=== PATIENT | female | born 1990 | race African-American/Black ===

== ENCOUNTER 2017-01-08 03:23 | Emergency (ER) | payer MEDICAID ==
[~2017-01-08] VITALS: Ht 165.1 cm; Wt 85.0 kg
[~2017-01-08 03:23] MED LIST: AMOX500T PO; AUGM875T PO; IBUP800 PO
[2017-01-08 03:28] VITALS: BP 123/74; PULSE 98; RESP 18; TEMP 98.5; O2SAT 100
--- NOTE | 2017-01-08 04:16 | PD ---
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 Patient states that the symptoms started a week ago. Patient states that pain in cramping pain localized to low back area and lower abdomen pelvic area. Patient denies any pain radiation. Patient states that her last menstruation period was November 07. Patient is a home test recently and was positive. Patient denies any vaginal discharge or bleeding. Patient denies any dysuria or frequency. Patient denies any fever chills. PFSH Past Medical History Cancer: No Cardiovascular Problems: No Diabetes: No Diminished Hearing: No Endocrine: No Gastrointestinal Disorders: No Genitourinary: No Heparin Induced Thrombocytopen: No Immune Disorder: No Implanted Vascular Access Dvce: No Musculoskeletal: No Neurologic: No Psychiatric: No Reproductive: No Respiratory: No Immunizations Current: Yes Sickle Cell Disease: No Thyroid Disease: No Tetanus Vaccination: Unknown Influenza Vaccination: No ?: : 4 Para: 3 Miscarriage: 0 : 0 Past Surgical History Section: Yes (X3) Other Surgery: No Social History Alcohol Use: No Tobacco Use: No Substance Use: No Allergies-Medications (Allergen,Severity, Reaction): Coded Allergies: No Known Allergies (Verified , 01/08/17) Reported Meds & Prescriptions Reported Meds & Active Scripts Active Review of Systems General / Constitutional: No: Fever Eyes: No: Visual changes HENT: No: Headaches Cardiovascular: No: Chest Pain or Discomfort Respiratory: No: Shortness of Breath Gastrointestinal: Positive: Abdominal Pain Genitourinary: Positive: Pelvic Pain, No: Dysuria Musculoskeletal: No: Pain Skin: No Rash Neurologic: No: Weakness Psychiatric: No: Depression Endocrine: No: Polydipsia Hematologic/Lymphatic: No: Easy Bruising Physical Exam Narrative GENERAL: Well-nourished, well-developed patient. SKIN: Focused skin assessment warm/dry. HEAD: Normocephalic. EYES: No scleral icterus. No injection or drainage. NECK: Supple, trachea midline. No JVD or lymphadenopathy. CARDIOVASCULAR: Regular rate and rhythm without murmurs, gallops, or rubs. RESPIRATORY: Breath sounds equal bilaterally. No accessory muscle use. GASTROINTESTINAL: Abdomen soft, nondistended. Patient has mild tenderness on palpation lower abdomen area. No rebound tenderness. No mass. MUSCULOSKELETAL: No cyanosis, or edema. BACK: Nontender without obvious deformity. No CVA tenderness. CAD LIBRARIAN exam: Cervix is long thick and closed. No blood in the vaginal vault. Data Data Last Documented VS Vital Signs Date Time Temp Pulse Resp B/P (MAP) Pulse Ox O2 Delivery O2 Flow Rate FiO2 01/08/17 03:28 98.5 98 18 123/74 (90) 100 Orders Orders Beta Hcg (Quant/Titer) (01/08/17 04:10) Complete Rh (01/08/17 04:10) Urinalysis - C+S If Indicated (01/08/17 04:10) Ed Urine Pregnancytest Poc (01/08/17 04:10) Us Pelvis (Ques Pr/Ect)W Trans (01/08/17 04:48) Labs Laboratory Tests Test 01/08/17 04:10 01/08/17 04:15 Urine Color YELLOW Urine Turbidity CLEAR Urine pH 6.5 Urine Specific [place] 1.019 Urine Protein NEG mg/dL Urine Glucose (UA) NEG mg/dL Urine Ketones NEG mg/dL Urine Occult Blood NEG Urine Nitrite NEG Urine Bilirubin NEG Urine Urobilinogen 2.0 MG/DL Urine Leukocyte Esterase NEG Urine RBC LESS THAN 1 /hpf Urine WBC 2 /hpf Urine Squamous Epithelial Cells <1 /hpf Urine Mucus FEW /lpf Microscopic Urinalysis Comment CULT NOT INDICATED Human Chorionic Gonadotropin, Quant 09146 MIU/ML MDM Medical Decision Making Medical Screen Exam Complete: Yes Emergency Medical Condition: Yes Interpretation(s) 6:05 AM. UA is negative. Beta hCG 70595. 6:34 AM. pelvic ultrasound shows intrauterine 8 weeks 1 day. Small amount of subchorionic hemorrhage. Differential Diagnosis Differential diagnosis including , ovarian cyst, ectopic , threatened AB. Narrative Course 26-year-old female with low abdominal pelvic pain. Urine test Positive. Diagnosis Primary Impression: Pelvic pain during Patient Instructions: General Instructions Additional Instructions: Tylenol for pain. vitamins as directed. Follow-up with OB physician. Return if increased abdominal pelvic pain, vaginal bleeding. Med/Other Pt SpecificInfo: No Meds Exist/No RX given Disposition: DISCHARGE HOME Condition: Stable Adolph Rivas MD Jan 08, 2017 04:16
[2017-01-08 04:47] LABS: BLOOD, URINE NEG (NEG); COMMENT (UR) CULT NOT INDICATED; CULTURE IF INDICATED CULT NOT INDICATED; GLUCOSE,URINE NEG (NEG); KETONE, URINE NEG (NEG); MUCUS URINE FEW /lpf (OCC); NITRITE,URINE NEG (NEG); PH, URINE 6.5 (5.0-8.5); SQUAMOUS EPITHELIAL CELL URINE <1 /hpf (0-5); URINE COLOR YELLOW (YELLW/STRAW)
[2017-01-08 05:32] LABS: BETA HCG QUANT 50487 MIU/ML (0-5)
--- NOTE | 2017-01-08 06:30 | RADRPT ---
EXAM DATE/TIME: 01/08/2017 05:28 [facility] COMPARISON: No previous studies available for comparison. INDICATIONS : Pelvic pain. LAB(S): Beta-hC MEDICAL HISTORY : . SURGICAL HISTORY : Left foot surgery. ENCOUNTER: Initial ACUITY: 1 week PAIN SCORE: 6/10 LOCATION: Bilateral pelvis MEASUREMENTS: UTERUS: 8.6 x 8.0 x 5.7 cm ENDOMETRIAL STRIPE: 8 mm RIGHT OVARY: 3.8 x 2.6 x 2.1 cm LEFT OVARY: 3.4 x 2.0 x 1.9 cm FREE FLUID: No CROWN RUMP LENGTH: 1.7 cm = 8 WKS 1 DAYS FHR: 169 BPM FINDINGS: UTERUS: There is a single intrauterine gestational sac with a pole. [place]hta-rump length corresponds to 8 weeks one day. cardiac activity is detected. Small hypoechoic regions noted along the inferior and superior margins of the gestational sac. RIGHT OVARY: Ovary contains no mass or significant cystic lesion. LEFT OVARY: Ovary contains no mass or significant cystic lesion. MISCELLANEOUS: No free fluid. CONCLUSION: 1. Single intrauterine gestational sac corresponding to 8 weeks 1 day with heart rate of 169 bp m. 2. Small hypoechoic regions noted along the inferior and superior margins of the gestational sac may reflect evolving focal subchorionic hemorrhage. 3. Normal appearing ovaries without significant pelvic free fluid. Wolf Cutler MD on January 08, 2017 at 6:23 Board Certified Radiologist. This report was verified electronically.
== END 2017-01-08 06:43 | disposition home or self-care (01) ==
LOC: NEPC 03:23
DX: O26.891 Other specified pregnancy related conditions, first trimester (principal); R10.2 Pelvic and perineal pain; Z3A.01 Less than 8 weeks gestation of pregnancy
CPT/HCPCS: 76700; 76817; 81001; 84702; 84703; 86901; 99284

== ENCOUNTER 2017-09-08 07:42 | Inpatient (IN) | payer MEDICAID ==
[2017-09-08] VITALS (56 sets, daily range): BP systolic 116–163; BP diastolic 58–108; PULSE 92–110; RESP 16–18; TEMP 98.4–98.6; O2SAT 95–100
[~2017-09-08] VITALS: Ht 157.5 cm; Wt 104.0 kg
[2017-09-08] MEDS ORDERED: LORazepam 2 MG/ML VIAL ONE (08:15)
[2017-09-08 08:20] LABS: BASOPHIL % 0.4 % (0.0-2.0); EOSINOPHIL # 0.1 TH/MM3 (0-0.4); EOSINOPHIL % 1.8 % (0.0-4.0); HEMATOCRIT 34.2 % (35.0-46.0); HEMOGLOBIN 10.5 GM/DL (11.6-15.3); LYMPH % 26.5 % (9.0-44.0); LYMPHOCYTE # 2.1 TH/MM3 (1.0-4.8); MEAN CELL VOLUME 67.8 FL (80.0-100.0); MEAN CORPUSCULAR HEMOGLOBIN 20.9 PG (27.0-34.0); MEAN CORPUSCULAR HGB CONC 30.8 % (32.0-36.0); MEAN PLATELET VOLUME 8.2 FL (7.0-11.0); MONO % 8.7 % (0.0-8.0); MONOCYTE # 0.7 TH/MM3 (0-0.9); NEUT % 62.6 % (16.0-70.0); PLATELET COUNT 350 TH/MM3 (150-450); RED BLOOD COUNT 5.04 MIL/MM3 (4.00-5.30); RED CELL DISTRIBUTION WIDTH 19.7 % (11.6-17.2); WHITE BLOOD COUNT 8.1 TH/MM3 (4.0-11.0)
[2017-09-08] MEDS ORDERED: MAGNESIUM SULFATE 4 GM PREMIX 100 ML IV ONE ×2 (08:30→10:30)
[2017-09-08] MEDS ORDERED: MAGNESIUM SULFATE 4 GM PREMIX 150 ML IV ONE (08:30)
[2017-09-08] MEDS ORDERED: LORazepam 2 MG/ML VIAL IV PUSH ONE (08:30)
[2017-09-08] MEDS ORDERED: MAGNESIUM SULFATE 2 GM/NS 100 ML IV SCH ×4 (08:30→10:15)
--- NOTE | 2017-09-08 08:33 | PD ---
HPI Chief Complaint: Seizure Time Seen by Provider: 07:53 Travel History International Travel<30 days: No Contact w/Intl Traveler<30days: No Traveled to known affect area: No History of Present Illness HPI This is a 27-year-old female who is 4 weeks who presents to the emergency department having woken up nauseous not feeling well and then had 2 episodes where she "fell out". She does not remember the details of the episodes. She did hit her head. Her family members at the bedside and witnessed 1 of the episodes and said she was shaking all over and trying to speak but could not. She did not have any urinary incontinence. Patient did not bite her tongue. History is limited because the patient is somewhat sleepy. Patient reports she had a vaginal delivery and was induced at 39 weeks. She was told that she was high risk for high blood pressure. She has never taken anything for blood pressure in the past and had no high blood pressure outside of . She has never been told that she had preeclampsia. PFSH Past Medical History Cancer: No Cardiovascular Problems: No Diabetes: No Diminished Hearing: No Endocrine: No Gastrointestinal Disorders: No Genitourinary: No Heparin Induced Thrombocytopen: No Immune Disorder: No Implanted Vascular Access Dvce: No Musculoskeletal: No Neurologic: No Psychiatric: No Reproductive: No Respiratory: No Immunizations Current: Yes Sickle Cell Disease: No Thyroid Disease: No ?: Unknown : 4 Para: 3 Miscarriage: 0 : 0 Past Surgical History Section: Yes (X3) Other Surgery: No Social History Alcohol Use: No Tobacco Use: No Substance Use: No Allergies-Medications (Allergen,Severity, Reaction): Coded Allergies: No Known Allergies (Verified Allergy, Unknown, 09/08/17) Reported Meds & Prescriptions Reported Meds & Active Scripts Active Review of Systems Except as stated in HPI: all other systems reviewed are Neg Physical Exam Narrative GENERAL: Sleepy but awakens to answer questions. SKIN: Focused skin assessment warm and dry. HEAD: Atraumatic. Normocephalic. EYES: Pupils equal and round. No injection or drainage. ENT: Moist mucous membranes NECK: Trachea midline. CARDIOVASCULAR: Regular rate and rhythm. No murmur appreciated. RESPIRATORY: Clear to auscultation. Breath sounds equal bilaterally. GASTROINTESTINAL: Abdomen soft, non-tender, nondistended. MUSCULOSKELETAL: No obvious deformities. NEUROLOGICAL: Awake and alert. No obvious cranial nerve deficits. Moving all extremities. PSYCHIATRIC: Appropriate mood and affect; insight and judgment normal. Data Data Last Documented VS Vital Signs Date Time Temp Pulse Resp B/P (MAP) Pulse Ox O2 Delivery O2 Flow Rate FiO2 09/08/17 08:00 100 Nasal Cannula 2.00 09/08/17 07:46 98.6 94 17 163/108 (126) Orders Orders Complete Blood Count With Diff (09/08/17 07:59) Comprehensive Metabolic Panel (09/08/17 07:59) ^ Insert Iv (09/08/17 07:59) Ct Brain W/O Iv Contrast(Rout) (09/08/17 ) Urinalysis - C+S If Indicated (09/08/17 07:59) Electrocardiogram (09/08/17 ) Lorazepam Inj (Ativan Inj) (09/08/17 08:15) Lorazepam Inj (Ativan Inj) (09/08/17 08:30) Magnesium Sulfate Inj (Magnesium Sulfate (09/08/17 08:30) Labs Laboratory Tests Test 09/08/17 08:05 White Blood Count 8.1 TH/MM3 Red Blood Count 5.04 MIL/MM3 Hemoglobin 10.5 GM/DL Hematocrit 34.2 % Mean Corpuscular Volume 67.8 FL Mean Corpuscular Hemoglobin 20.9 PG Mean Corpuscular Hemoglobin Concent 30.8 % Red Cell Distribution Width 19.7 % Platelet Count 350 TH/MM3 Mean Platelet Volume 8.2 FL Neutrophils (%) (Auto) 62.6 % Lymphocytes (%) (Auto) 26.5 % Monocytes (%) (Auto) 8.7 % Eosinophils (%) (Auto) 1.8 % Basophils (%) (Auto) 0.4 % Neutrophils # (Auto) 5.0 TH/MM3 Lymphocytes # (Auto) 2.1 TH/MM3 Monocytes # (Auto) 0.7 TH/MM3 Eosinophils # (Auto) 0.1 TH/MM3 Basophils # (Auto) 0.0 TH/MM3 CBC Comment DIFF FINAL Differential Comment MDM Medical Decision Making Medical Screen Exam Complete: Yes Emergency Medical Condition: Yes Interpretation(s) Afebrile, mild tachycardia, hypertension Hemoglobin is 10.5 Differential Diagnosis Seizure, eclampsia, syncope, pseudoseizure Narrative Course This is a 27-year-old female who presents to the emergency department with a possible seizure earlier this morning. She did hit her head. She has 4 weeks . Blood pressure here is elevated. Patient had an additional witnessed possible tonic-clonic seizure in the emergency department. I spoke to Dr. East the OB hospitalist. My concern is that this reflects eclampsia. Patient was given 2 mg of IV Ativan and loaded with 6 g of magnesium. She has been accepted to labor and delivery for further management. Critical Care Narrative Aggregate critical care time was 40 minutes. Time to perform other separately billable procedures was not included in the critical care time. My time did not include minutes spent treating any other patients simultaneously or on activities that did not directly contribute to the patient's treatment. The services I provided to this patient were to treat and/or prevent clinically significant deterioration that could result in:disability, I provided critical care services requiring my management, as noted below: Chart data review, documentation time, medication orders and management, vital sign assessments/reviewing monitor data, ordering and reviewing lab tests, ordering and interpreting/reviewing x-rays and diagnostic studies, care of the patient and discussion of the patient with the admitting physicians. Diagnosis Primary Impression: Eclamptic seizure Admitting Information Admitting Physician Requests: Admit Hailee Finley MD September 08, 2017 08:33
[2017-09-08 08:39] LABS: ALBUMIN 3.3 GM/DL (3.4-5.0); AST (GOT) 25 U/L (15-37); BICARBONATE 24.5 MEQ/L (21.0-32.0); BLOOD UREA NITROGEN 8 MG/DL (7-18); CALCIUM 8.7 MG/DL (8.5-10.1); CHLORIDE 109 MEQ/L (98-107); CREATININE 0.93 MG/DL (0.50-1.00); GLOMERULAR FILTRATION RATE 87 ML/MIN (>89); GLUCOSE,RANDOM 102 MG/DL (74-106); SODIUM (NA) 141 MEQ/L (136-145)
[2017-09-08 08:42] LABS: ALKALINE PHOSPHATASE 74 U/L (45-117); ALT (GPT) 24 U/L (10-53); TOTAL BILIRUBIN ADULT 0.1 MG/DL (0.2-1.0); TOTAL PROTEIN 7.2 GM/DL (6.4-8.2)
[2017-09-08] MEDS ORDERED: MAGNESIUM SULFATE 40 GM PREMIX 1,000 ML IV SCH (09:18)
[2017-09-08] MEDS ORDERED: LORazepam 2 MG/ML VIAL IV PUSH PRN (09:30)
[2017-09-08] MEDS ORDERED: CALCIUM GLUCONATE 10% 1 GM/10 ML VIAL IV PUSH PRN (09:30)
[2017-09-08] MEDS ORDERED: SODIUM CHLORIDE 0.9% FLUSH 10 ML FLUSH IV FLUSH PRN (09:30)
[2017-09-08] MEDS: SODIUM CHLORIDE 0.9% FLUSH 10 ML FLUSH IV FLUSH SCH ×2 (09:30→20:12)
--- NOTE | 2017-09-08 09:44 | HHI.HP ---
HPI Travel History International Travel<30 Days: No Contact w/Intl Traveler<30Days: No Known Affected Area: No History of Present Illness HPI 27-year-old female at 4 weeks she presented to the ED after experiencing an episode of "seizure-like" activity at home. Accompanied by family members. History provided mostly by sister. History is limited because the patient is somewhat somewhat fatigued. Sister reports that she was at home sitting in a chair when she witnessed patient shaking and collapsing on the floor. She reports that the shaking lasted for a few minutes. Patient did not hit her head. She denies biting of tongue and loss of urinary/bowel control. Sister states that patient was confused after the episode. She denies history of seizures. ED physician witnessed patient having a tonic-clonic episode in the ED consistent with history. Patient was administered 2 mg of IV Ativan and loaded with 6 g of magnesium. Family reports that patient had an uncomplicated vaginal delivery at 39 weeks at [facility]. She states that she was never diagnosed with preeclampsia, but she was at high risk for high blood pressure. History Past Medical History Medical History: Denies Significant Hx Obstetric History Obstetric History 5 vaginal deliveries at full-term 1 Gestational Diabetes Hx of Trichomonas 2016 Past Surgical History Narrative Surgical Left ankle surgery 2011 Family History Family History: Negative Social History Alcohol Use: No Tobacco Use: No Substance Abuse: No Allergies-Medications (Allergen,Severity, Reaction): Coded Allergies: No Known Allergies (Verified Allergy, Unknown, 09/08/17) Review of Systems Except as stated in HPI: all other systems reviewed are Neg Physical Exam Vital Signs Date Time Temp Pulse Resp B/P (MAP) Pulse Ox O2 Delivery O2 Flow Rate FiO2 09/08/17 08:35 93 17 151/84 (106) 100 Non-Rebreather 10.00 09/08/17 08:00 100 Nasal Cannula 2.00 09/08/17 07:46 98.6 94 17 163/108 (126) 100 Narrative GENERAL: Sleepy, post-ictal SKIN: Warm and dry. HEAD: Normocephalic and atraumatic. EYES: No scleral icterus. No injection or drainage. PERRLA ENT: No nasal drainage noted. Mucous membranes pink. Airway patent. NECK: Supple, trachea midline. No JVD. CARDIOVASCULAR: Regular rate and rhythm without murmurs, gallops, or rubs. RESPIRATORY: Breath sounds equal bilaterally. No accessory muscle use. ABDOMEN/GI: Abdomen soft, non-tender, bowel sounds present, no rebound, no guarding EXTREMITIES: No cyanosis or edema. No clonus. Normal reflexes BACK: Nontender without obvious deformity. No CVA tenderness. NEUROLOGICAL: Post-ictal. Motor and sensory grossly within normal limits. Five out of 5 muscle strength in all muscle groups. Normal speech. Caprini VTE Risk Assessment Caprini VTE Risk Assessment: No/Low Risk (score <= 1) Caprini Risk Assessment Model Point Value = 1 Point Value = 2 Point Value = 3 Point Value = 5 Age 41-60 Minor surgery BMI > 25 kg/m2 Swollen legs Varicose veins or History of unexplained or recurrent spontaneous Oral contraceptives or hormone replacement Sepsis (< 1 month) Serious lung disease, including pneumonia (< 1 month) Abnormal pulmonary function Acute myocardial infarction Congestive heart failure (< 1 month) History of inflammatory bowel disease Medical patient at bed rest Age 61-74 Arthroscopic surgery Major open surgery (> 45 min) Laparoscopic surgery (> 45 min) Malignancy Confined to bed (> 72 hours) Immobilizing plaster cast Central venous access Age >= 75 History of VTE Family history of VTE Factor V Leiden Prothrombin [id number] Lupus anticoagulant Anticardiolipin antibodies Elevated serum homocysteine Heparin-induced thrombocytopenia Other congenital or acquired thrombophilia Stroke (< 1 month) Elective arthroplasty Hip, pelvis, or leg fracture Acute spinal cord injury (< 1 month) Prophylaxis Regimen Total Risk Factor Score Risk Level Prophylaxis Regimen 0-1 Low Early ambulation 2 Moderate Order ONE of the following: *Sequential Compression Device (SCD) *Heparin 5000 units SQ BID 3-4 Higher Order ONE of the following medications: *Heparin 5000 units SQ TID *Enoxaparin/Lovenox 40 mg SQ daily (WT < 150 kg, CrCl > 30 mL/min) *Enoxaparin/Lovenox 30 mg SQ daily (WT < 150 kg, CrCl > 10-29 mL/min) *Enoxaparin/Lovenox 30 mg SQ BID (WT < 150 kg, CrCl > 30 mL/min) AND/OR *Sequential Compression Device (SCD) 5 or more Highest Order ONE of the following medications: *Heparin 5000 units SQ TID (Preferred with Epidurals) *Enoxaparin/Lovenox 40 mg SQ daily (WT < 150 kg, CrCl > 30 mL/min) *Enoxaparin/Lovenox 30 mg SQ daily (WT < 150 kg, CrCl > 10-29 mL/min) *Enoxaparin/Lovenox 30 mg SQ BID (WT < 150 kg, CrCl > 30 mL/min) AND *Sequential Compression Device (SCD) Data Data Orders Orders Complete Blood Count With Diff (09/08/17 07:59) Comprehensive Metabolic Panel (09/08/17 07:59) ^ Insert Iv (09/08/17 07:59) Ct Brain W/O Iv Contrast(Rout) (09/08/17 ) Urinalysis - C+S If Indicated (09/08/17 07:59) Electrocardiogram (09/08/17 ) Lorazepam Inj (Ativan Inj) (09/08/17 08:15) Lorazepam Inj (Ativan Inj) (09/08/17 08:30) Magnesium Sulfate Inj (Magnesium Sulfate (09/08/17 08:30) Admit To Inpatient (09/08/17 ) Code Status (09/08/17 09:18) Vital Signs (Adult) Q5MX4,Q15MX4,Q30MX2,Q1H (09/08/17 09:18) Resp Pulse Oximetry (09/08/17 ) Activity Bed Rest (09/08/17 09:18) Intake + Output Q1H (09/08/17 09:18) Notify Parameters (09/08/17 09:18) Urinary Catheter Management SRINI.Q8H (09/08/17 09:18) ^ Check Deep Tendon Reflexes Q1H (09/08/17 09:18) Diet Npo (09/08/17 Breakfast) Lactated Ringer's 1000 Ml Inj (Lr 1000 M (09/08/17 09:18) Sodium Chloride 0.9% Flush (Ns Flush) (09/08/17 09:30) Sodium Chloride 0.9% Flush (Ns Flush) (09/08/17 09:30) Magnesium Sulfate 40 Gm Premix (Magnesiu (09/08/17 09:18) Hydralazine Inj (Apresoline Inj) (09/08/17 09:45) Calcium Gluconate Inj (Calcium Gluconate (09/08/17 09:30) Uric Acid (09/08/17 09:18) Magnesium Sulfate 4 Gm Premix (Magnesium (09/08/17 09:30) Inpatient Certification (09/08/17 ) Specimen To Be Collected PRN (09/08/17 09:18) Protein Creat Ratio, Random Ur (09/08/17 09:18) Lorazepam Inj (Ativan Inj) (09/08/17 09:30) Labs Laboratory Tests Test 09/08/17 08:05 White Blood Count 8.1 Red Blood Count 5.04 Hemoglobin 10.5 Hematocrit 34.2 Mean Corpuscular Volume 67.8 Mean Corpuscular Hemoglobin 20.9 Mean Corpuscular Hemoglobin Concent 30.8 Red Cell Distribution Width 19.7 Platelet Count 350 Mean Platelet Volume 8.2 Neutrophils (%) (Auto) 62.6 Lymphocytes (%) (Auto) 26.5 Monocytes (%) (Auto) 8.7 Eosinophils (%) (Auto) 1.8 Basophils (%) (Auto) 0.4 Neutrophils # (Auto) 5.0 Lymphocytes # (Auto) 2.1 Monocytes # (Auto) 0.7 Eosinophils # (Auto) 0.1 Basophils # (Auto) 0.0 CBC Comment DIFF FINAL Differential Comment Blood Urea Nitrogen 8 Creatinine 0.93 Random Glucose 102 Total Protein 7.2 Albumin 3.3 Calcium Level 8.7 Alkaline Phosphatase 74 Aspartate Amino Transf (AST/SGOT) 25 Alanine Aminotransferase (ALT/SGPT) 24 Total Bilirubin 0.1 Sodium Level 141 Potassium Level 3.9 Chloride Level 109 Carbon Dioxide Level 24.5 Anion Gap 8 Estimat Glomerular Filtration Rate 87 Assessment/Plan Assessment and Plan 27-year-old female at 4 weeks admitted for eclampsia -Blood pressure 163/108 on arrival -Additional witnessed possible tonic-clonic seizure in the ED, patient was given 2 mg of IV Ativan and loaded with 6 g of magnesium -Continue magnesium IV 2 g/hr -Hydralazine 10 mg IV as needed for blood pressure greater than 160/110 -Blood pressure goal 140/90 -Ativan 2 g IV push as needed for uncontrolled seizures -N.p.o. -SCDs, bedrest - CT brain without IV contrast pending -protein/ creatinine ratio, uric acid pending -UDS pending -CBC, plt 350, LFTs wnl -MRI w/wo IV contrast ordered -Neurology consulted. appreciate recs. sdw Dr. East and Nivia White MD R1 September 08, 2017 09:44
[2017-09-08] MEDS ORDERED: hydrALAZINE HCL 20 MG/ML VIAL IV PUSH PRN (09:45)
[2017-09-08] MEDS ORDERED: MAGNESIUM SULFATE 40 GM PREMIX 1,000 ML ONE (09:52)
[2017-09-08] MEDS: LACTATED RINGER'S 1000 ML INJ 1,000 ML IV SCH (10:14)
[2017-09-08 10:47] LABS: MUCUS URINE FEW /lpf (OCC)
[2017-09-08 10:53] LABS: BILIRUBIN, URINE NEG (NEG); BLOOD, URINE NEG (NEG); GLUCOSE,URINE NEG (NEG); KETONE, URINE NEG (NEG); NITRITE,URINE NEG (NEG); PH, URINE 5.5 (5.0-8.5); URINE COLOR LIGHT-YELLOW (YELLW/STRAW); URINE LEUKOCYTE ESTERASE NEG (NEG)
--- NOTE | 2017-09-08 12:14 | MB ---
cc: Sona Khan MD DATE: 09/08/2017 REASON FOR CONSULTATION COMPLAINT: Seizure. HISTORY OF PRESENT ILLNESS: This is a 27-year-old woman 4 weeks who presented to the ED after noted at home early this morning by family and some children that she was shaking. Apparently had another seizure in the ED described as tonic-clonic. She was given some Ativan and loaded with 6 grams of magnesium. The patient is somewhat postictal and somnolent, does try to follow simple commands. She had a normal uncomplicated delivery at 39 weeks, was never diagnosed with preeclampsia, but was gestational diabetes. PAST MEDICAL HISTORY: Only gestational diabetes. PAST SURGICAL HISTORY: Left ankle in 2011. FAMILY HISTORY: Negative. SOCIAL HISTORY: Does not smoke, drink or use drugs. ALLERGIES: NONE REPORTED. PHYSICAL EXAMINATION: VITAL SIGNS: Temperature 98.6, last heart rate 102, respiratory rate 16, blood pressure 116/58. NECK: Supple. HEART: Regular. NEUROLOGIC: She is somnolent, arousable. Pupils reactive. Face looks symmetrical. Tongue, I do not see any significant bruising. Motor graff, she seems to move everything equally. She can squeeze my hands and withdraw her legs. DTRs are 1+. Sensory is normal. Both toes are downgoing. Cerebellar cannot be checked at this time nor gait. LABORATORY DATA: Hemoglobin is 10.5, her platelets are 350,000. White count 8.1. Chemistries GFR 87, albumin 3.3. Tox screen is pending. Urine shows few mucus. No culture indicated. IMAGING DATA: No imaging thus far. IMPRESSION: New onset seizure 4 weeks . Recommend continuing current care. She already received a magnesium sulfate one time and she will be getting 2 grams, 2 bags were ordered over an hour. Hydralazine p.r.n. Ativan p.r.n. for any prolonged witnessed seizure. She is pending an MRI of the brain with and without gadolinium and an EEG has been ordered. Maintain seizure precautions. If her workup is unremarkable, then from 1 event, I would not start her antiepileptics, I will just put her on magnesium for now. Continue current care as outlined. Sona Khan MD DF/DL , 11:43 AM , 12:13 PM
--- NOTE | 2017-09-08 13:13 | RADRPT ---
EXAM DATE/TIME: 09/08/2017 12:24 [facility] COMPARISON: No previous studies available for comparison. INDICATIONS : Seizures. MEDICAL HISTORY : Hypertension. Gestational diabetes. SURGICAL HISTORY : Left ankle and leg sx. ENCOUNTER: Initial ACUITY: 1 day PAIN SCORE: 3/10 LOCATION: Bilateral cranial TECHNIQUE: Multiplanar, multisequence MRI of the brain was performed without contrast. FINDINGS: CEREBRUM: The ventricles are normal for age. No evidence of midline shift, mass lesion, hemorrhage or acute in farction. No extraaxial fluid collections are seen. The pituitary gland and suprasellar cistern are normal in configuration. Normal flow-voids are seen in the dural sinuses. WHITE MATTER: No significant signal abnormalities are seen in the white matter. POSTERIOR FOSSA: The cerebellum and brainstem are intact. The 4th ventricle is midline. The cerebellopontine angle is unremarkable. The cerebellar tonsils are normal in position. DIFFUSION IMAGING: No focal areas of restricted diffusion are seen. No evidence of acute infarction. EXTRACRANIAL: The visualized portions of the orbits are unremarkable. There is left maxillary sinus disease. CONCLUSION: No acute disease. Austin Pruitt MD on September 08, 2017 at 13:07 Board Certified Radiologist. This report was verified electronically.
--- NOTE | 2017-09-08 13:30 | RADRPT ---
EXAM DATE/TIME: 09/08/2017 13:15 [place] COMPARISON: MRI BRAIN W/O CONTRAST, September 08, 2017, 12:24. INDICATIONS : Seizure, tremors RADIATION DOSE: 56.35 CTDIvol (mGy) MEDICAL HISTORY : None SURGICAL HISTORY : None. ENCOUNTER: Initial ACUITY: 1 day PAIN SCALE: 0/10 LOCATION: cranial TECHNIQUE: Multiple contiguous axial images were obtained of the head. Using automated exposure control and adj ustment of the mA and/or kV according to patient size, radiation dose was kept as low as reasonably a chievable to obtain optimal diagnostic quality images. DICOM format image data is available electro nically for review and comparison. FINDINGS: CEREBRUM: The ventricles are normal for age. No evidence of midline shift, mass lesion, hemorrhage or acute in farction. No extra-axial fluid collections are seen. POSTERIOR FOSSA: The cerebellum and brainstem are intact. The 4th ventricle is midline. The cerebellopontine angle i s unremarkable. EXTRACRANIAL: There is mild polypoid mucosal thickening in the left maxillary sinus. SKULL: The calvaria is intact. No evidence of skull fracture. CONCLUSION: No acute intracranial findings. Austin Morse MD on September 08, 2017 at 13:27 Board Certified Radiologist. This report was verified electronically.
--- NOTE | 2017-09-08 17:56 | HHI.PR ---
TANNERY WORKER Note Note Last [address] 09/08/17 0000 Signed Impressions: Service Date/Time: Friday, September 08, 2017 13:15 - CONCLUSION: No acute intracranial findings. Austin Morse MD Brain MRI 09/08/17 0000 Signed Impressions: Service Date/Time: Friday, September 08, 2017 12:24 - CONCLUSION: No acute disease. Austin Pruitt MD On the patient is 4 weeks she has no history of preeclampsia and other pregnancies, no history of hypertension during her most recent or between pregnancies. Patient's urine drug screen positive for cocaine See radiology results as above I am more concerned about a primary reason for her new onset seizures rather than eclampsia. Neurology has consulted and is following Dayana Villanueva MD September 08, 2017 17:56
--- NOTE | 2017-09-08 23:54 | HHI.PR ---
GEOTHERMAL HEAT PUMP MACHINIST Note Note Called to patient's room for possible seizure activity. Patient was initially admitted to L&D for suspicion of late eclampsia as she is 4-5 weeks . However patient has had no elevated blood pressure and PIH labs have been normal. Urine tox is positive for cocaine. MRI and CT scan were normal but patient refused to submit to EEG today. A visitor was noted to leave her room just before patient's possible seizure activity. VSS normal on exam. 100% sat BP 130/82 Patient is able to verbalize but it is difficult to understand as she is slurring her words. She is not combative but is trying to get out of bed to "go home" Chest CTA Abd - Soft NT Last [address] 09/08/17 0000 Signed Impressions: Service Date/Time: Friday, September 08, 2017 13:15 - CONCLUSION: No acute intracranial findings. Austin Morse MD Brain MRI 09/08/17 0000 Signed Impressions: Service Date/Time: Friday, September 08, 2017 12:24 - CONCLUSION: No acute disease. Austin Pruitt MD I just spoke with Dr Khan who recommended treatment with Vimpat IV and Ativan and consult to hospitalist technician telecommunication systems for possible transfer to neuro floor Patient status is not c/w eclampsia at this time Dayana Villanueva MD September 08, 2017 23:54
[2017-09-09] VITALS (9 sets, daily range): BP systolic 117–142; BP diastolic 65–86; PULSE 85–96; RESP 18; TEMP 96.7–97.9; O2SAT 84–100
[2017-09-09] MEDS ORDERED: LACOSAMIDE INJ 100 MG in SODIUM CHLORIDE 0.9% INJ 100 ML IV ONE ×2
[2017-09-09] MEDS: SODIUM CHLORIDE 0.9% FLUSH 10 ML FLUSH IV FLUSH SCH (08:28)
--- NOTE | 2017-09-09 09:39 | PD.CONS ---
HPI Service [facility] Consult Requested By Dr. Villanueva Reason for Consult Seizures Primary Care Physician No Primary Care Physician Diagnoses: (1) New onset seizure History of Present Illness 27-year-old female now 4 weeks vaginal delivery with only past medical history of gestational diabetes, presents with new onset seizures. Patient is currently awake but very drowsy, falls asleep throughout conversation, oriented to person, place, time, but provides little information of the events leading up to her admission, therefore history supplemented by EMR. Patient was initially admitted on 09/08/17 to BAR SUPERVISOR service as the patient is 4 weeks and there is reported seizure-like activity at home, concern for eclampsia. The family members reported the patient was sitting in a chair at home when she started shaking and collapsed to the floor. Episode lasted a few minutes. She did not hit her head, no tongue biting, no urinary incontinence. The sister reported the patient was confused following the episode. While the patient was still in the ER, she had another witnessed tonic-clonic seizure and was given IV Ativan 2 mg and 6 g of magnesium. Patient was admitted to BAR SUPERVISOR service for concern for late eclampsia , however she had no elevated blood pressures and PIH labs within normal limits , not consistent with eclampsia. The patient had another seizure around midnight last night while in the hospital. BAR SUPERVISOR team requested transfer to neuro/medical floor and has signed off. Patient herself denies any history of seizures. Denies any recent fevers/chills, headache, visual changes, chest pain, shortness of breath, abdominal pain, nausea/vomiting, diarrhea, or urinary complaints. Workup so far reveals a positive UDS for cocaine. Head CT unremarkable. Neurology has been consulted. EEG pending. Vital signs have remained stable except for mild tachycardia. No other events reported by RN. Review of Systems Except as stated in HPI: all other systems reviewed are Neg Past Family Social History Allergies: Coded Allergies: No Known Allergies (Verified Allergy, Unknown, 09/08/17) Past Medical History Gestational diabetes Past Surgical History Left ankle surgery Reported Medications Denies any home medications Active Ordered Medications Current Medications Medications (Trade) Dose Ordered Sig/Mabel Route Start Time Stop Time Status Last Admin Lactated Ringer's 1,000 ml @ 75 mls/hr [id number] IV 09/08/17 09:18 09/08/17 10:14 (NS Flush) 2 ml UNSCH PRN IV FLUSH 09/08/17 09:30 (NS Flush) 2 ml BID IV FLUSH 09/08/17 09:30 09/09/17 08:28 (Apresoline Inj) 10 mg NOW PRN IV PUSH 09/08/17 09:45 09/10/17 09:44 (Calcium Gluconate Inj) 1 gm UNSCH PRN IV PUSH 09/08/17 09:30 (Ativan Inj) 2 mg Q10M PRN IV PUSH 09/08/17 09:30 09/08/17 23:50 Lacosamide 50 mg/ Sodium Chloride 105 ml @ 105 mls/hr Q12H IV 09/09/17 12:00 Family History Denies any significant family history of seizures, stroke, diabetes, cancers, heart disease. Social History Denies any tobacco, alcohol, or illicit drug use. Discussed with the patient her drug screen positive for cocaine, she declines to comment, does not respond when asked specifically when was last time she used cocaine. Physical Exam Vital Signs Vital Signs Date Time Temp Pulse Resp B/P (MAP) Pulse Ox O2 Delivery O2 Flow Rate FiO2 09/09/17 08:20 97.9 90 18 136/86 (103) 100 09/09/17 02:56 96.7 91 18 117/85 (96) 98 09/09/17 01:55 93 98 09/09/17 01:50 92 98 09/09/17 01:45 90 96 09/09/17 01:40 96 84 09/09/17 01:35 95 98 09/08/17 23:53 18 09/08/17 23:35 100 100 09/08/17 23:33 99 134/80 (98) 09/08/17 23:01 96 124/63 (83) 09/08/17 22:30 103 100 09/08/17 22:25 101 99 09/08/17 22:20 100 100 09/08/17 22:15 102 100 09/08/17 22:10 102 100 09/08/17 22:05 101 100 09/08/17 22:01 102 139/73 (95) 09/08/17 22:00 99 18 100 09/08/17 21:55 102 100 09/08/17 21:50 100 100 09/08/17 21:45 97 100 09/08/17 21:20 96 97 09/08/17 21:15 98 100 09/08/17 21:11 18 09/08/17 21:10 98 100 09/08/17 21:05 101 100 09/08/17 21:01 98 141/86 (104) 09/08/17 21:00 102 100 09/08/17 20:55 101 100 09/08/17 20:50 101 100 09/08/17 20:45 97 100 09/08/17 20:40 99 100 09/08/17 20:35 94 100 09/08/17 20:30 96 100 09/08/17 20:10 104 100 09/08/17 20:05 96 100 09/08/17 20:01 93 137/91 (106) 09/08/17 20:00 98.4 09/08/17 20:00 97 16 100 09/08/17 18:52 16 09/08/17 18:01 16 09/08/17 18:00 98 133/94 (107) 09/08/17 17:01 94 117/83 (94) 09/08/17 17:01 16 09/08/17 16:25 92 138/90 (106) 09/08/17 14:44 93 116/74 (88) 09/08/17 11:01 102 16 116/58 (77) 09/08/17 11:00 103 98 09/08/17 10:00 105 129/70 (89) 96 09/08/17 10:00 103 09/08/17 09:55 104 130/82 (98) 95 09/08/17 09:55 102 09/08/17 09:50 101 09/08/17 09:50 104 134/67 (89) 95 09/08/17 09:45 108 131/77 (95) 09/08/17 09:45 104 97 09/08/17 09:40 104 133/76 (95) 97 09/08/17 09:40 104 Physical Exam GENERAL: Well-nourished, well-developed young AA female patient in [facility]. SKIN: Warm and dry. No rash. HEENT: Normocephalic. Atraumatic. Pupils equal and round. Mucous membranes pink and moist. NECK: Supple. Trachea midline. CARDIOVASCULAR: Regular rate and rhythm. No murmur appreciated. RESPIRATORY: No accessory muscle use. Clear to auscultation. Breath sounds equal bilaterally. GASTROINTESTINAL: Abdomen soft, non-tender, nondistended. Normoactive bowel sounds x4. MUSCULOSKELETAL: No obvious deformities. Extremities without clubbing, cyanosis , or edema. NEUROLOGICAL: Awake and alert. No obvious cranial nerve deficits. Motor grossly within normal limits. Moving all extremities spontaneously. Normal speech. Laboratory Laboratory Tests Test 09/08/17 09:55 Urine Color LIGHT-YELLOW Urine Turbidity CLEAR Urine pH 5.5 Urine Specific [place] 1.013 Urine Protein TRACE Urine Glucose (UA) NEG Urine Ketones NEG Urine Occult Blood NEG Urine Nitrite NEG Urine Bilirubin NEG Urine Urobilinogen LESS THAN 2.0 Urine Leukocyte Esterase NEG Urine RBC LESS THAN 1 Urine WBC 1 Urine Mucus FEW Microscopic Urinalysis Comment CULT NOT INDICATED Urine Random Creatinine 126 Urine Random Total Protein 41 Urine Protein/Creatinine Ratio 0.33 Urine Opiates Screen NEG Urine Barbiturates Screen NEG Urine Amphetamines Screen NEG Urine Benzodiazepines Screen NEG Urine Cocaine Screen POS Urine Cannabinoids Screen NEG Result Diagram: 09/08/17 0809/08/17 0805 Imaging Last Impressions Head CT 09/08/17 0000 Signed Impressions: Service Date/Time: Friday, September 08, 2017 13:15 - CONCLUSION: No acute intracranial findings. Austin Morse MD Brain MRI 09/08/17 0000 Signed Impressions: Service Date/Time: Friday, September 08, 2017 12:24 - CONCLUSION: No acute disease. Austin Pruitt MD Assessment and Plan Problem List: (1) New onset seizure ICD Code: R56.9 - Unspecified convulsions Assessment and Plan 27-year-old female now 4 weeks vaginal delivery with only past medical history of gestational diabetes, presents with new onset seizures. New-onset seizures: Initially evaluated by BAR SUPERVISOR for concern for late eclampsia, however she had no elevated blood pressures and PIH labs within normal limits, not consistent with eclampsia; therefore OBGYN team signed off and transferred to neuro/medical floor. -Head CT and Brain MRI reviewed, no acute findings -UDS positive for cocaine -Neuro Checks, Seizure precautions -IV Ativan prn seizure -EEG overall normal with some somnolence, but no epileptic activity -Neuro consulted, appreciate recommendations -patient had another seizure in hospital, started on IV Vimpat 50mg bid -check CBC, BMP, mag, CPK, ammonia, TSH Cocaine Use: UDS +cocaine. Patient denies this -counseled on cessation DVT Prophylaxis: teds/SCDs Code Status Full Code Discussed Condition With Patient, RN Sandy Bailey PA-C September 09, 2017 9:39 am
--- NOTE | 2017-09-09 10:20 | HHI.PR ---
VEHICLE CARE SPECIALIST Note Note OB progress note Patient seen and examined this morning. Sleeping comfortably in bed. Discussed care with RN. No further seizure activity since midnight. Patient denies recurrence of seizures herself or any confusion. Denies any other focal neuro deficit. GENERAL: NAD, lying comfortably in bed SKIN: Warm and dry. HEAD: Normocephalic and atraumatic. EYES: PERRL. No scleral icterus. No injection or drainage. ENT: No nasal drainage noted. Mucous membranes pink. Airway patent. NECK: Supple, trachea midline. No JVD. CARDIOVASCULAR: Regular rate and rhythm without murmurs, gallops, or rubs. RESPIRATORY: Breath sounds equal bilaterally. No accessory muscle use. ABDOMEN/GI: Abdomen soft, non-tender, bowel sounds present, no rebound, no guarding EXTREMITIES: No cyanosis or edema. No clonus. Normal reflexes BACK: Nontender without obvious deformity. No CVA tenderness. NEUROLOGICAL: Awake. Normal speech. Motor and sensory grossly within normal limits. A/P: The patient was initially admitted to L&D due to suspicion for late eclampsia however she has had no elevation of her blood pressure and PIH labs are within normal limits. Patient's status appears not consistent with eclampsia. The patient has been transferred to a neuro/medicine floor. The patient has been transferred to a medicine service under [facility] and neurology is continuing to follow the patient. VEHICLE CARE SPECIALIST will sign off. Heriberto Welsh MD R2 September 09, 2017 10:20
--- NOTE | 2017-09-09 10:36 | MG ---
cc: Sona Khan MD ELECTROENCEPHALOGRAM NUMBER: [id number]. CLINICAL HISTORY: EEG done with photic stimulation only. The patient slept throughout the test. History of new onset seizure 4 weeks . DESCRIPTION: Patient has an alpha rhythm of 8 Hz at times, 20-40 microvolts. There is some attenuation at other times due to drowsiness. No hyperventilation performed. Overall, fairly symmetrical background, some mild movement artifact, but no clear epileptic potentials noted. Photic stimulation does have a driving response. IMPRESSION: Overall, normal appearing electroencephalogram with some somnolence noted consistent with some mild slowing, but no epileptic activity. Sona Khan MD DF/DL , 10:24 AM , 10:35 AM
[2017-09-09] MEDS: LACTATED RINGER'S 1000 ML INJ 1,000 ML IV SCH (11:18)
[2017-09-09] MEDS ORDERED: LACOSAMIDE INJ 50 MG in SODIUM CHLORIDE 0.9% INJ 100 ML IV SCH (12:00)
[2017-09-09 14:34] LABS: AUTOMATED NEUTROPHIL # 3.8 TH/MM3 (1.8-7.7); BASOPHIL % 0.3 % (0.0-2.0); EOSINOPHIL # 0.1 TH/MM3 (0-0.4); HEMATOCRIT 34.8 % (35.0-46.0); HEMOGLOBIN 10.7 GM/DL (11.6-15.3); LYMPH % 33.8 % (9.0-44.0); LYMPHOCYTE # 2.2 TH/MM3 (1.0-4.8); MEAN CELL VOLUME 68.1 FL (80.0-100.0); MEAN CORPUSCULAR HEMOGLOBIN 20.9 PG (27.0-34.0); MEAN CORPUSCULAR HGB CONC 30.8 % (32.0-36.0); MONO % 6.5 % (0.0-8.0); MONOCYTE # 0.4 TH/MM3 (0-0.9); NEUT % 57.4 % (16.0-70.0); PLATELET COUNT 348 TH/MM3 (150-450); RED BLOOD COUNT 5.11 MIL/MM3 (4.00-5.30); WHITE BLOOD COUNT 6.6 TH/MM3 (4.0-11.0)
[2017-09-09 15:02] LABS: CALCIUM 7.9 MG/DL (8.5-10.1); CREATININE 0.8 MG/DL (0.50-1.00)
--- NOTE | 2017-09-09 16:10 | PD.AMA ---
Against Medical Advice Note Discharge Disposition: Against Medical Advice Pt Condition on Discharge: Stable Recommended Treatment Course NO DRIVING F/up with Neurology AMA Statement Patient Corey Stovall has decided to leave the hospital against medical advice. This patient has the capacity to refuse care and understands the risks of leaving, including permanent disability and/or , and has had an opportunity to ask questions about her condition. The patient has been informed that she may return for care at any time, and follow up has been advised. Sandy Bailey PA-C September 09, 2017 4:10 pm
--- NOTE | 2017-09-10 11:56 | EKG ---
Date Performed: 09/08/2017 Time Performed: 08:21:01 PTAGE: 27 years EKG: Sinus rhythm NORMAL ECG PREVIOUS TRACING : 08/05/2012 06.28 DOCTOR: Neville Tariq Interpretating Date/Time 09/10/2017 11:55:27
== END 2017-09-09 17:31 | disposition left against medical advice (07) | DRG 776 ==
LOC: NEPE 07:42 → H2EA 09:00 → N06B 09-09 02:16
PROVIDERS: ADMIT Obstetrics & Gynecology Maternal & Fetal Medicine; ATTEND Obstetrics & Gynecology Maternal & Fetal Medicine
DX: O99.325 Drug use complicating the puerperium (principal); G40.89 Other seizures; F14.90 Cocaine use, unspecified, uncomplicated; E66.9 Obesity, unspecified; Z68.41 Body mass index [BMI] 40.0-44.9, adult
CPT/HCPCS: 70450; 70551; 80048; 80053; 80307; 81001; 82140; 82550; 82552; 82570; 83735; 84156; 84443; 84550; 85025; 93005; 95819; C9254; G0481; J2060; J3475; J7120